=== PATIENT | male | born 1940 | race Caucasian/White ===

== ENCOUNTER 2019-07-11 10:58 | Day surgery (SDC) | payer MEDICARE ==
[~2019-07-11] VITALS: Ht 188 cm; Wt 86.7 kg
[2019-07-11] MEDS ORDERED: normal saline 1000ml 1,000 ML IV SCH (11:35)
[2019-07-11] MEDS ORDERED: TIOT18CA3 INH (12:14)
[2019-07-11] MEDS ORDERED: RIVA20TA PO (12:14)
[2019-07-11] MEDS ORDERED: LISI40TA4 PO (12:14)
[2019-07-11] MEDS ORDERED: ALB0.5UD IH (12:14)
[2019-07-11] MEDS ORDERED: FLUT1DIS4 INH (12:14)
[2019-07-11] MEDS ORDERED: ALBU8.5H8 INH (12:14)
[2019-07-11] MEDS ORDERED: FENO160T PO (12:14)
[2019-07-11] MEDS ORDERED: LIDOcaine 1%/PF 5ML 10 MG/ML VIAL ONE (13:10)
[2019-07-11] MEDS ORDERED: heparin 1,000unit/ml 10ml vial 10 ML ONE (13:10)
[2019-07-11] MEDS ORDERED: fentaNYL/PF 50MCG/1 ML 2ML syringe ONE (13:10)
[2019-07-11 13:30] VITALS: BP 129/67
[2019-07-11 14:00] VITALS: BP 147/89
[2019-07-11 14:15] VITALS: BP 143/72
[2019-07-11 14:30] VITALS: BP 155/86
[2019-07-11 14:45] VITALS: BP 145/72
== END 2019-07-11 15:00 | disposition home or self-care (01) ==
LOC: SSTAY O 10:58
PROVIDERS: ATTEND Radiology Diagnostic Radiology
DX: T82.49XA Other complication of vascular dialysis catheter, initial encounter (principal); I12.9 Hypertensive chronic kidney disease with stage 1 through stage 4 chronic kidney disease, or unspecified chronic kidney disease; N18.9 Chronic kidney disease, unspecified; J44.9 Chronic obstructive pulmonary disease, unspecified
CPT/HCPCS: 36581; C1750; C1769; J1644; J3010; J7030; A9270